=== PATIENT | female | born 1935 | race Caucasian/White ===

== ENCOUNTER 2016-05-08 13:04 | Inpatient (IN) | payer OTHER ==
--- NOTE | ~2016-05-08 | DS ---
Discharge Summary [place] [id number] [facility] [place]. [address] NAME: RIK SORTO : 37 STATUS : DIS IN PAT#: [id number] AGE: 81 ADM/REG DATE : 05/08/16 MR#: [id number] REPORT SERV DATE: 05/16/16 DICTATED BY: LEWIS DENT DATE: 05/15/16 REPORT STATUS : Draft TRANSCRIBED BY: MODL DATE: 05/15/16 ADMISSION DATE: 05/08/2016 DISCHARGE DATE: 05/15/2016 DISCHARGE DIAGNOSES: 1. Hypoxia, acute on chronic. 2. Aspiration pneumonia. 3. Painful/difficult swallowing. 4. Bilateral upper and lower extremity tremors, intermittent. 5. Pancytopenia secondary to Ibrance. 6. Metastatic breast cancer, progressive. CONSULTATIONS: Oncology, Dr. Ady Azevedo. IMAGIN. Chest x-ray, 05/08/2016. Impression: No significant change in appearance compared with 03/24/2016. Elevation of right diaphragm with right basilar atelectasis and pleural thickening. Linear region of atelectasis from lower left lobe improved. Bilateral apical pleural thickening and scarring with opacities at the right lung apex. Breast carcinoma with extensive bone metastasis. 2. CTA of chest, 05/08/2016. Impression: No CTA evidence of pulmonary embolism. No new segmental atelectasis, medial left upper lobe compared to 04/19/2016 CT of the chest. Otherwise, stable pattern. Patchy peripheral areas of fibrosis, most prominent anterior right lung apex. Diffuse thickening of the major fissure, most prominent anterior right lung apex. Diffuse thickening of the major fissure on the right, asymmetric ground-glass opacity, inferior right middle lobe and right lower lobe and several small intermittent pulmonary nodules, peripheral right lower lobe and superior segment of left lower lobe. 3. Chest x-ray, 05/10/2016. Impression: Diffuse bilateral reticular opacity, stable as compared to 05/08/2016 imaging. 4. Swallow study 05/11/2016. Impression: Single episode of aspiration occurring at the end of the study with a functional volume of thin barium by straw with a cough response. 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 Diet recommendations, mechanical soft, crush medications in pudding, and nectar thick liquids. 5. Echocardiogram, 05/11/2016. Right ventricular systolic function intact. Left ventricular systolic function intact at 57%. Left ventricular diastolic dysfunction with a left anterior enlargement. Only valvular dysfunction is mild tricuspid regurgitation. No significant changes noted when compared to 03/15/2015 study. HOSPITAL COURSE: Please refer to history and physical dictated by GREER Ugalde as well as interim note on 04/24/2016 for complete admission and interim notes. This patient is an 81-year-old female, who presented to [facility] Emergency Room with complaints of increased dyspnea on exertion with hypoxia. She also presented with fevers in the setting of neutropenia and thrombocytopenia. Discharge Summary [address] [address] NAME: RIK SORTO : 36 STATUS : DIS IN [facility]#: [id number] AGE: 81 ADM/REG DATE : 05/08/16 MR#: [id number] REPORT SERV DATE: 05/16/16 DICTATED BY: LEWIS DENT DATE: 05/15/16 REPORT STATUS : Draft TRANSCRIBED BY: LUIS EDUARDO DATE: 05/15/16 1. Hypoxia, acute on chronic. The patient was admitted with acute hypoxia likely due to aspiration. The patient has been on supplemental O2, was able to wean down to room air. She was initially started on Solu-Medrol IV and then tapered to a p.o. prednisone. She will be transitioned on a prednisone tapering dose at home. At this time she does deny any shortness of breath. 2. Neutropenic fever/aspiration pneumonia. The patient was noted with elevated temperatures at home. Upon admission, the patient has remained afebrile. She was began on antibiotics following blood cultures. At the time of admission, the patient was on cefepime. She is being discharged home on Levaquin for a 5-day therapy at home. 3. Painful/difficulty swallowing secondary to radiation. The patient did undergo radiation in March 2016. Stool study has been completed during this hospital stay. Diet modifications have been noted and discussed with the patient, she will continue this at home. At this time the patient will continue a soft diet with medical soft diet, crush medications in pudding, and nectar thick liquids. The patient did state understanding. 4. Bilateral upper and lower extremity tremors. Medication adjustments have been noted as stated previously in interim note. The patient will continue Remeron upon discharge, prescription has been provided. She also will continue physical therapy at home. 5. Pancytopenia secondary to branches Ibrance. No transfusions were indicated during this hospital stay. She will follow up with Dr. Ady Azevedo in two days for lab work and a followup appointment in seven days. 6. Thrombocytopenic chemo-induced. It was noted the patient's platelet count has been monitored through this stay and has trended upward and we will continue to monitor outpatient. 7. Metastatic breast cancer. Progression of disease despite treatment. The patient is followed by Dr. Ady Azevedo, [facility]. She will follow up with him in two days for lab work and in seven days for an appointment. At that time plan of care will be discussed. DISCHARGE MEDICATIONS: 1. Welchol 3.75 g powder packet p.o. daily. 2. Lipitor 40 mg one p.o. at bedtime. 3. Levothyroxine 75 mcg p.o. daily. 4. Remeron 50 mg one p.o. at bedtime. 5. MS Contin 50 mg one p.o. every 12 hours. 6. Protonix 40 mg one p.o. daily. 7. MiraLAX powder one pack p.o. daily p.r.n., hold for diarrhea. 8. Carafate 1 g p.o. before meals and at bedtime. 9. Prednisone taper dose. 10.Oxycodone 5 mg one p.o. four times daily p.r.n. for pain. 11.Tylenol 500 mg to 1000 mg p.o. twice daily p.r.n. for pain. 12.Xanax 0.5 mg one p.o. twice daily p.r.n. for anxiety. This discharge took greater than 30 minutes. Discharge Summary [address] [place]. [address] NAME: RIK SORTO : 36 STATUS : DIS IN PAT#: [id number] AGE: 81 ADM/REG DATE : 05/08/16 MR#: [id number] REPORT SERV DATE: 05/16/16 DICTATED BY: LEWIS DENT DATE: 05/15/16 REPORT STATUS : Draft TRANSCRIBED BY: MODL DATE: 05/15/16 [facility]/MODL Lewis Dent NP / [id number] CC: MD Nathen Godfrey MD
--- NOTE | ~2016-05-08 | HP ---
History And Physical [place] [id number] [facility] [place]. [address] NAME: RIK SORTO : 36 STATUS : ADM IN PAT#: [id number] AGE: 81 ADM/REG DATE : 05/08/16 MR#: [id number] REPORT SERV DATE: 05/08/16 DICTATED BY: DATE: REPORT STATUS : Draft TRANSCRIBED BY: MODL DATE: 05/08/16 DATE OF ADMISSION: 05/08/2016 CHIEF COMPLAINT: Dyspnea on exertion with hypoxia, subjective fevers in the setting of neutropenia, and thrombocytopenia. HISTORY OF PRESENTING ILLNESS: The patient's history was obtained through careful interview with the patient and her family coupled with review of [facility] records and [facility] office note dated 05/08/[address] Ady Azevedo. Briefly, the patient is an 81-year-old female, who is under the outpatient care of Dr. Ady Azevedo at [facility] for treatment of ER positive recurrent breast cancer. The patient presented to [facility]'s clinic today for Faslodex therapy. Upon evaluation, the patient complained of increased dyspnea and shortness of breath despite recent outpatient course of Augmentin to treat bronchitis. The patient also reported subjective fevers at home to include chills and sweats. The patient did not check temperature at home. During initial exam, the patient's oxygen saturation was reported to drop to 81% while walking with 93% recovery at rest on room air. The patient's platelet count was also reported to be down to 10,000. The patient was referred for direct admission to [facility] for further evaluation and treatment. The patient stated that she began feeling "poorly" late February or early March. The patient reports that she has had intermittent chills and sweats over the past few weeks that have increased in frequency. The patient also complained of a productive cough for the past three weeks now with yellow-colored sputum. The patient states she has been short of breath with exertion for the past five or six weeks, but the dyspnea with exertion has increased significantly since this morning. The patient also complained of increasing generalized weakness over the past several weeks that has significantly increased over the past several days. Per family report, the patient had a near fall while going up the stairs last and then suffered a fall to the floor this past Saturday. The patient denies any recent near syncopal or syncopal episodes. Family denied any loss of consciousness related to recent fall. The patient's family reports that multiple family members have suffered from upper respiratory illnesses to include positive flu test since March. REVIEW OF SYSTEMS: CONSTITUTIONAL: Positive for subjective report of fever, sweats, chills, and weight loss. EYES: Negative for blurred or double vision, wears glasses. HEENT: Positive for intermittent headache and sore throat related to recent radiation therapy. CARDIOVASCULAR: Negative for chest pain, palpitations, syncope. Positive for chronic orthopnea x40 plus years. RESPIRATORY: Positive for productive cough x3 weeks, dyspnea on exertion, and recent outpatient treatment for bronchitis. History And Physical [address] [address] NAME: RIK SORTO : 37 STATUS : ADM IN [facility]#: [id number] AGE: 81 ADM/REG DATE : 05/08/16 MR#: [id number] REPORT SERV DATE: 05/08/16 DICTATED BY: DATE: REPORT STATUS : Draft TRANSCRIBED BY: MODL DATE: 05/08/16 GASTROINTESTINAL: Negative for nausea, vomiting, abdominal pain. Positive for chronic constipation. MUSCULOSKELETAL: Positive for chronic bilateral lower extremity pain, arthritis. INTEGUMENT: Negative for rashes or suspicious skin lesions. NEUROLOGIC: Positive for generalized weakness. Denies history of stroke, TIA, and seizure. HEMATOLOGIC: Positive for pancytopenia. PSYCHIATRIC: Positive for anxiety. Negative for history of depression and bipolar. : Negative for dysuria, hematuria. Recent UTI. ENDOCRINE: Negative for diabetes mellitus. Positive for thyroid disease. PAST MEDICAL HISTORY: 1. Left breast cancer in 1992. 2. Right breast cancer in 1999 with recurrence in 2010 with metastases to bone, liver, and lung. 3. Hypothyroidism. 4. Anxiety. 5. Arthritis. PAST SURGICAL HISTORY: 1. Left mastectomy in 1992. 2. Right mastectomy in 1999. 3. Colonoscopy in 2005. HOME MEDICATIONS: 1. Tylenol 500 mg tablet take two tablets p.o. twice daily as needed. 2. Xanax 0.5 mg tablet p.o. twice daily as needed for anxiety. 3. Lipitor 40 mg tablet p.o. at bedtime. 4. Celexa 10 mg tablet p.o. daily. 5. WelChol 3.75 g powder p.o. daily. 6. Levothyroxine 75 mg mcg tablet p.o. daily. 7. MS Contin 15 mg SR tab p.o. every 12 hours. 8. Roxicodone 5 mg tablet p.o. four times daily as needed. 9. Pantoprazole 40 mg tablet p.o. daily. ALLERGIES: PENICILLIN, REACTION RASH. SOCIAL HISTORY: The patient is and lives with her son. 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 The patient is a remote tobacco user having quit in 1992. The patient denies the use of alcohol. The patient has not used a cane or walker in the past to assist with ambulation. FAMILY HISTORY: The patient's mother at age 90 with a history of breast cancer. The patient's father in a mining accident in his mid 40s. The patient has five siblings, all of whom, but one are . CODE STATUS: The patient expressed her wishes to be a limited DNR/DNI. History And Physical [address] [address] NAME: RIK SORTO : 37 STATUS : ADM IN [facility]#: [id number] AGE: 81 ADM/REG DATE : 05/08/16 MR#: [id number] REPORT SERV DATE: 05/08/16 DICTATED BY: DATE: REPORT STATUS : Draft TRANSCRIBED BY: MODL DATE: 05/08/16 LABORATORY DATA: Obtained from [facility] prior to this admission, white blood cell count 1.1, hemoglobin 8.8, hematocrit 24.8, platelet count 10,000. PHYSICAL EXAMINATION: VITAL SIGNS: Oxygen saturation 96% on room air at rest, blood pressure 104/51, temperature 98.4 degrees Fahrenheit, heart rate 101, weight 47.68 kg, height 4 feet 9 inches. NEURO: The patient is alert with no focal deficits. Cranial nerves 2 through 12 are intact. GENERAL: The patient is cooperative and in no apparent distress. She is awake, alert, and oriented x3. Appears fatigued. NECK: No lymphadenopathy. The patient is edentulous. No visible oral cavity lesions or exudate. CHEST: No tenderness to palpation. LUNGS: Shallow inspiratory effort. Normal work of breathing. Decreased lung sounds at bases. No wheezes. No rhonchi. CARDIOVASCULAR: Regular rate and rhythm with no murmurs, rubs, or gallops. Mild tachycardia. ABDOMEN: Soft, nontender. No distention. Bowel sounds are present in all four quadrants. EXTREMITIES: No edema to bilateral lower extremities. Bruise to left elbow. MUSCULOSKELETAL: Kyphosis. PSYCH: Demonstrates good decision making ability. ASSESSMENT AND PLAN: 1. Neutropenic fever. The patient reports subjective fevers at home. Temperature obtained upon admission is 98.4 degrees Fahrenheit. The patient is currently undergoing treatment for recurrent metastatic breast cancer to include Faslodex/Ibrance. 2. therapy. Diagnostic workup to rule out underlying infection in an immunosuppressed patient will include portable chest x-ray, blood cultures x2 sites, sputum culture, influenza swab, urinalysis with reflex culture and labs to include procalcitonin. Antibiotic therapy will be initiated and the patient will receive cefepime 2 g now after blood cultures are collected and then every eight hours thereafter with pharm to dose. 3. Dyspnea/hypoxia. Exact etiology is unclear. The patient subjectively reported history of shortness of breath for the last five to six weeks that has increased significantly with exertion today. If the patient was recently treated on an outpatient basis for bronchitis with Augmentin. Per [facility], the patient recently had a CT of the chest within the past several weeks, which was negative. Exact etiology is unclear, but differential diagnoses include upper respiratory infection versus pneumonia versus medication side effect versus pulmonary embolism versus radiation therapy side effect. Supplemental oxygen per nasal cannula will be provided to maintain oxygen saturation at 92% or greater. If indicated, repeat CT of the chest may be necessary to rule out pulmonary embolus. 4. Thrombocytopenia. Exact etiology is unclear, but differential diagnoses include negative side effects from medications versus infection versus recent pelvic radiation therapy. There is also concern of disseminated intravascular coagulation in the setting of malignancy. Coag studies will be obtained to include History And Physical [address] [address] NAME: RIK SORTO : 37 STATUS : ADM IN [facility]#: [id number] AGE: 81 ADM/REG DATE : 05/08/16 MR#: [id number] REPORT SERV DATE: 05/08/16 DICTATED BY: DATE: REPORT STATUS : Draft TRANSCRIBED BY: MODL DATE: 05/08/16 PT/PTT/INR/LDH/fibrinogen. Transfuse as needed to maintain platelet count within parameters set by [facility]. 5. Subjective fevers. The patient reports sweats and chills over the past couple of months at home that have increased significantly over the past couple of days. Diagnostic evaluation and labs are pending to rule out underlying infection. 6. Recent fall. The patient fell at home on Saturday. No loss of consciousness was reported. The patient states it is not related to a syncopal episode. Only injury sustained was bruise to left elbow. PT has been consulted to assess for fall prevention strategies. 7. Generalized weakness. This is progressively worsening. Exact etiology is unclear, but may be related to recent radiation therapy plus negative side effects of medication to treat metastatic breast cancer. 8. Bilateral lower extremity pain. The patient reports her pain bilaterally from shins to feet has been chronic for several months. We will continue home pain medications and hold home dose of Lipitor for now. 9. Decreased appetite. This is most significant since March after five days of radiation therapy. The patient will receive nutrition supplements to include Ensure three times daily. The patient also reports decreased weight reporting 15-pound weight loss since March. Nutrition consult has been requested. 10.Anxiety. Continue home dose of Celexa and Xanax. 11.Sore throat. This is related to recent radiation therapy. Per patient, this is improving. Continue [facility] mouthwash. 12.Metastatic breast cancer. The patient is currently undergoing treatment with Ibrance and Faslodex, last dose of Ibrance was 05/01/2016. Next scheduled dose is tentatively for 05/09/2016; however, per the patient's statement, this is to be held per [facility]. Last dose of Faslodex was today. The patient is status post radiation therapy x5 days 03/2016. PRIMARY ONCOLOGIST: Dr. Ady Azevedo. Care of this patient will be transferred to the service of Dr. Johnny Henderson. ETHAN/LUIS EDUARDO GREER Ugalde / [id number] CC: Leonel Blackman MD
--- NOTE | ~2016-05-08 | IDS ---
Interim Discharge Summary [address] [place]. [address] NAME: RIK SORTO : 37 STATUS : ADM IN [facility]#: [id number] AGE: 81 ADM/REG DATE : 05/08/16 MR#: [id number] REPORT SERV DATE: 05/15/16 DICTATED BY: DATE: REPORT STATUS : Draft TRANSCRIBED BY: MODL DATE: 05/14/16 ADMISSION DATE: 05/08/2016 DISCHARGE DATE: DISCHARGE DATE: 05/15/2016 Interim summary covers dates of service between 05/08/2016 and 05/14/2016. INTERIM DIAGNOSES: 1. Hypoxia, acute on chronic. 2. Aspiration pneumonia. 3. Painful/difficult swallowing. 4. Bilateral upper and lower extremity tremors, intermittent. 5. Pancytopenia. 6. Thrombocytopenia. 7. Metastatic breast cancer, progressive. CONSULTATIONS: Dr. Ady Azevedo, [facility]. PERTINENT TESTS AND PROCEDURES: 1. Chest x-ray, 05/08/2016. Impression: No significant interval change in appearance of chest x-ray when compared to 03/24/2016. Elevation of the right diaphragm with right basilar atelectasis and pleural thickening. Linear region of atelectasis from lower left lobe, improved. Bilateral apical pleural thickening and scarring with opacities at right lung apex. Breast carcinoma with extensive bone metastases. 2. CTA of chest, 05/08/2016. Impression:. a. No CTA evidence of pulmonary embolus. b. New focal subsegmental atelectasis, medial left upper lobe, compared to 04/19/2016 CT of the chest. c. Otherwise stable pattern of patchy peripheral areas of fibrosis, most prominent anterior right lung apex. Diffuse thickening of the major fissure on the right, asymmetric ground-glass opacity, inferior right middle lobe and right lower lobe and several small indeterminant pulmonary nodules, peripheral right lower lobe and superior segment, left lower lobe. d. Stable pattern of more diffuse ground-glass opacities, inferior right middle lobe and right lower lobe, suggesting asymmetric pulmonary fibrosis, progressing asymmetric interstitial edema, and asymmetric interstitial pneumonitis. e. Enlarged right retrocrural lymph node, stable. f. Stable hypodense 1.8 x 1.2 cm lesion, anterior margin of liver dome, left lobe liver, suspicious for liver metastatic disease. g. Stable pattern of extensive osteoblastic metastatic disease involving lower cervical spine, scattered throughout the thoracic spine and multiple bilateral ribs, right scapula, and lower sternum. 3. Chest x-ray, 05/10/2016. Impression: Diffuse bilateral reticular opacity, stable as compared to 05/08/2016 imaging. 4. Swallow study, 05/11/2016. Impression: Single episode of aspiration occurring at the Interim Discharge Summary [address] [place]. [address] NAME: RIK SORTO : 37 STATUS : ADM IN [facility]#: [id number] AGE: 81 ADM/REG DATE : 05/08/16 MR#: [id number] REPORT SERV DATE: 05/15/16 DICTATED BY: DATE: REPORT STATUS : Draft TRANSCRIBED BY: MODL DATE: 05/14/16 end of the study with a functional volume of thin barium by straw with a cough response. 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 Diet recommendation, mechanical soft, crush meds in pudding, and nectar thick liquids. 5. Echocardiogram, 05/11/2016. Summary: Right ventricular systolic function, intact. Left ventricular systolic function, intact at 57%. Left ventricular diastolic dysfunction with left atrial enlargement. Only valvular dysfunction is mild tricuspid regurgitation. No significant changes noted when compared to 03/15/2015 study. HOSPITAL COURSE: Chief complaint upon admission: Dyspnea on exertion with hypoxia, subjective fevers in the setting of neutropenia, and thrombocytopenia. Please refer to history and physical dated 05/08/2016 provided by fl for complete details of the patient's initial presentation upon admission and health history. 1. Hypoxia, acute on chronic. Review of medical records from [facility] reported the patient has a history of chronic class 2 exertional dyspnea. Acute hypoxia likely related to aspiration. The patient's trial of ambulation indicated need for supplemental home O2. The patient was placed on Solu-Medrol IV and then transitioned to p.o. prednisone. The patient has responded well to steroid therapy. Steroid taper should begin at discharge and continue for 6 days. 2. Neutropenic fever/aspiration pneumonia. The patient reported subjective elevated temperatures while at home. During this admission, the patient has remained afebrile. Upon admission, the patient was neutropenic and white blood cell count was reported to be 0.8. The patient was placed on cefepime and will continue through discharge. Per Oncology recommendation, the patient should be transitioned to oral antibiotic to continue additional 5-day therapy at home. Aspiration is likely due to painful and difficult swallowing related to neck radiation therapy completed mid March of 2016. 3. Painful and difficult swallowing. This is related to radiation therapy received to treat bony mets in neck, 03/2016. The patient underwent barium swallow which indicated aspiration. Recommended diet modifications have been initiated to include mechanical soft diet. Crush medications in pudding and nectar thick liquids. 4. Bilateral upper and lower extremity tremors, this is multifactorial, to include generalized weakness and possible side effects from citalopram. The patient was placed on citalopram approximately three months ago and the patient's family stated tremors began several weeks after that. Citalopram was discontinued during this admission, and the patient was started on mirtazapine. The patient has tolerated this medication without any adverse side effects to date. Continue mirtazapine upon discharge. 5. Pancytopenia. This is secondary to Ibrance. No transfusions have been indicated today. The patient will have home healthcare come either this or Saturday to draw CBC and BMP and results will be faxed to Dr. Ady Azevedo's office for review. 6. Thrombocytopenia. The patient's platelets have remained low throughout this admission. Upon admission, the patient's platelet level was reported to be 9000. It has slowly trended up daily and is 24,000 today. This is most likely multifactorial, to include treatment with Ibrance and likely marrow involvement. 7. Metastatic breast cancer, progressive despite treatment. The patient is declining future treatment due to poor performance status. The patient will follow up with Dr. Ady Azevedo, 05/22/2016 and discuss future plan of care to include possible transition Interim Discharge Summary [address] [place]. [address] NAME: RIK SORTO MIKE : 37 STATUS : ADM IN [facility]#: [id number] AGE: 81 ADM/REG DATE : 05/08/16 MR#: [id number] REPORT SERV DATE: 05/15/16 DICTATED BY: DATE: REPORT STATUS : Draft TRANSCRIBED BY: MODL DATE: 05/14/16 to hospice. CURRENT PLAN AND DISPOSITION: 1. The patient will likely discharge home, 05/15/2016, if lab counts are stable and the patient remains afebrile. 2. Social Work has been consulted for home oxygen, to include portable concentrator. Home healthcare, physical therapy, and lab draw in addition to wheelchair. 3. It is noteworthy to mention the patient was suffering from orthostatic hypotension during this admission which may have been related to dehydration. Cortisol a.m. Lab value was within normal limits. This has since resolved. DISCHARGE INSTRUCTIONS: The patient is to follow up with Dr. Ady Azevedo on 05/22/2016 at 02:15. HIRO/LUIS EDUARDO GREER Ugalde / [id number]
[~2016-05-08 13:04] MED LIST: CAL; CALCIUM; FLEXERIL5 MG PO; LEVOTHROID75 MCG PO; LIPITOR20 PO; OXYCOD PO; PEP20 PO; VIT D; VIT D 3
[2016-05-08] MEDS ORDERED: OXYCOD PO (15:01)
[2016-05-08] MEDS ORDERED: CELEXA10 PO (15:01)
[2016-05-08] MEDS ORDERED: MSCONT15 PO (15:01)
[2016-05-08] MEDS ORDERED: X5 PO (15:02)
[2016-05-08] MEDS ORDERED: ACET500CAP PO (15:02)
[2016-05-08] MEDS ORDERED: WELCHOL3.75 GM PO (15:02)
[2016-05-08] MEDS ORDERED: LEVOTHYROXIN75 MCG PO (15:02)
[2016-05-08] MEDS ORDERED: PROTONIX PO (15:03)
[2016-05-08] MEDS ORDERED: LIPITOR40 PO (15:03)
[2016-05-08 15:54] LABS: INFLUENZA A SCREEN NEGATIVE (NEGATIVE); INFLUENZA B SCREEN NEGATIVE (NEGATIVE)
[2016-05-08 16:12] LABS: MEAN CORPUS HGB CONC 33.8 g/dL (32.0-36.0); MEAN CORPUSCULAR HEMOGLOB 33.2 pg (26.0-34.0); RBC DISTRIBUTION WIDTH 16.4 % (12.0-16.0)
[2016-05-08 16:14] LABS: HEMATOCRIT 23.4 % (36.0-48.0); HEMOGLOBIN 7.9 g/dL (12.0-16.0); MEAN CORPUSCULAR VOLUME 98.3 fL (80-100); PLATELET COUNT 9 10/3/uL (150-400); RED CELL COUNT 2.38 10/6/uL (4.0-5.6); WHITE BLOOD CELLS 0.8 10/3/uL (4.5-10.5)
[2016-05-08 16:16] LABS: MANUAL DIFF YES %
[2016-05-08 16:19] LABS: FIBRINOGEN 430 MG/DL (230-462); INTERNATIONAL NORMAL RATI 1.2 UNITS (-); PROTIME (NOT ORD) 14.9 SEC (12.0-14.5)
[2016-05-08 16:41] LABS: BAND NEUTROPHILS 4 %; LYMPHOCYTES 58 %; LYMPHOCYTES ABSOLUTE (CALC) 0.46 10/3/uL (0.67-4.30); MONOCYTES 4 %; MONOCYTES ABSOLUTE (CALC) 0.03 10/3/uL (0.21-1.20); SEGMENTED NEUTROPHIL (0) 34 %; TOTAL NUCLEATED CELLS 50
[2016-05-08 16:42] LABS: ANISOCYTOSIS 1+ (5-10/OIF) (0-5/OIF); OVALOCYTES 1+ (3-10/OIF) (0-2/OIF)
[2016-05-08 17:03] LABS: ASCORBIC ACID (UR NOT ORDER) NEG (NEG); BILIRUBIN, URINE NEGATIVE (NEG); KETONE, URINE TRACE MG/DL (NEG); LEUKOCYTE ESTERASE(NOT OR TRACE (NEG); WBC (NOT ORDERED) (RFLEX) 3 (0-5)
[2016-05-08 17:50] LABS: PROCALCITONIN 0.06 ng/mL (<0.5)
[2016-05-08 19:29] LABS: A/G RATIO 0.7 (0.7-1.9); ALBUMIN 2.7 G/DL (3.5-5.0); ALKALINE PHOSPHATASE 97 U/L (45-117); CALCIUM, SERUM 8.1 MG/DL (8.5-10.4); CHLORIDE, SERUM 103 MMOL/L (96-112); CO2 (CARBON DIOXIDE) 26 MMOL/L (24-34); GFR AFRICAN AMERICAN 81 ML/MIN (>=60); GFR NON AFRICAN AMERICAN 70 ML/MIN (>=60); GLUCOSE, SERUM 95 MG/DL (60-99); SGOT(AST) 32 U/L (5-40); SGPT(ALT) 18 U/L (5-65); SODIUM, SERUM 141 MMOL/L (135-148); TOTAL PROTEIN 6.7 G/DL (6.0-8.5)
[2016-05-08 19:30] LABS: BUN (BLOOD UREA NITROGEN) 11 MG/DL (6-23); POTASSIUM, SERUM 2.9 MMOL/L (3.5-5.3); TOTAL BILIRUBIN 1.5 MG/DL (0-1.2)
[2016-05-09 04:58] LABS: HEMATOCRIT 22.3 % (36.0-48.0); HEMOGLOBIN 7.5 g/dL (12.0-16.0); MEAN CORPUS HGB CONC 33.6 g/dL (32.0-36.0); MEAN CORPUSCULAR HEMOGLOB 32.9 pg (26.0-34.0); MEAN CORPUSCULAR VOLUME 97.8 fL (80-100); RBC DISTRIBUTION WIDTH 16.9 % (12.0-16.0); RED CELL COUNT 2.28 10/6/uL (4.0-5.6)
[2016-05-09 05:02] LABS: MANUAL DIFF YES %; PLATELET COUNT 15 10/3/uL (150-400); WHITE BLOOD CELLS 0.8 10/3/uL (4.5-10.5)
[2016-05-09 05:13] LABS: BUN (BLOOD UREA NITROGEN) 10 MG/DL (6-23); CALCIUM, SERUM 8.1 MG/DL (8.5-10.4); CHLORIDE, SERUM 109 MMOL/L (96-112); CO2 (CARBON DIOXIDE) 28 MMOL/L (24-34); CREATININE 0.59 MG/DL (0.55-1.02); GFR AFRICAN AMERICAN 100 ML/MIN (>=60); GFR NON AFRICAN AMERICAN 87 ML/MIN (>=60); GLUCOSE, SERUM 97 MG/DL (60-99); SODIUM, SERUM 145 MMOL/L (135-148)
[2016-05-09 05:28] LABS: BAND NEUTROPHILS 2 %; ELLIPTOCYTES 1+ (3-10/OIF) (0-2/OIF); IMMATURE GRANS ABSOLUTE (CALC) 0.02 10/3/uL (0.0-0.11); LYMPHOCYTES 64 %; LYMPHOCYTES ABSOLUTE (CALC) 0.51 10/3/uL (0.67-4.30); METAMYELOCYTES 2 %; MONOCYTES 2 %; MONOCYTES ABSOLUTE (CALC) 0.02 10/3/uL (0.21-1.20); NEUTROPHILS ABSOLUTE (CALC) 0.26 10/3/uL (2.02-8.40); OVALOCYTES 1+ (3-10/OIF) (0-2/OIF); SEGMENTED NEUTROPHIL (0) 30 %; TOTAL NUCLEATED CELLS 100
[2016-05-09 05:29] LABS: POIKILOCYTOSIS 1+ (5-10/OIF) (0-5/OIF)
[2016-05-10 07:35] LABS: A/G RATIO 0.6 (0.7-1.9); ALBUMIN 2.2 G/DL (3.5-5.0); ALKALINE PHOSPHATASE 89 U/L (45-117); BUN (BLOOD UREA NITROGEN) 10 MG/DL (6-23); CHLORIDE, SERUM 105 MMOL/L (96-112); CO2 (CARBON DIOXIDE) 27 MMOL/L (24-34); CREATININE 0.64 MG/DL (0.55-1.02); GFR AFRICAN AMERICAN 98 ML/MIN (>=60); GFR NON AFRICAN AMERICAN 84 ML/MIN (>=60); GLOBULIN 3.7 G/DL (2.5-4.1); GLUCOSE, SERUM 100 MG/DL (60-99); POTASSIUM, SERUM 4.2 MMOL/L (3.5-5.3); SGOT(AST) 27 U/L (5-40); SGPT(ALT) 11 U/L (5-65); SODIUM, SERUM 141 MMOL/L (135-148); TOTAL PROTEIN 5.9 G/DL (6.0-8.5)
[2016-05-10 07:36] LABS: MEAN CORPUSCULAR HEMOGLOB 32.5 pg (26.0-34.0); MEAN CORPUSCULAR VOLUME 98.6 fL (80-100); NUCLEATED RED BLOOD CELLS 7.5 /100WBC (0-0); RBC DISTRIBUTION WIDTH 16.9 % (12.0-16.0); RED CELL COUNT 2.09 10/6/uL (4.0-5.6); TOTAL BILIRUBIN 0.9 MG/DL (0-1.2)
[2016-05-10 07:37] LABS: HEMATOCRIT 20.6 % (36.0-48.0); HEMOGLOBIN 6.8 g/dL (12.0-16.0); MANUAL DIFF YES %; PLATELET COUNT 12 10/3/uL (150-400); WHITE BLOOD CELLS 0.7 10/3/uL (4.5-10.5)
[2016-05-10 08:12] LABS: ANISOCYTOSIS 1+ (5-10/OIF) (0-5/OIF); BAND NEUTROPHILS 3 %; EOSINOPHILS 3 %; EOSINOPHILS ABSOLUTE (CALC) 0.02 10/3/uL (0.0-0.53); IMMATURE GRANS ABSOLUTE (CALC) 0.04 10/3/uL (0.0-0.11); LYMPHOCYTES 46 %; LYMPHOCYTES ABSOLUTE (CALC) 0.32 10/3/uL (0.67-4.30); METAMYELOCYTES 6 %; MONOCYTES 9 %; MONOCYTES ABSOLUTE (CALC) 0.06 10/3/uL (0.21-1.20); NEUTROPHILS ABSOLUTE (CALC) 0.26 10/3/uL (2.02-8.40); SEGMENTED NEUTROPHIL (0) 34 %; TOTAL NUCLEATED CELLS 35
[2016-05-10 08:13] LABS: SCHISTOCYTES OCC (0-2/OIF)
[2016-05-10 08:14] LABS: TEARDROP SHAPED RBCS OCC (0-2/OIF)
[2016-05-11 08:43] LABS: BUN (BLOOD UREA NITROGEN) 12 MG/DL (6-23); CHLORIDE, SERUM 106 MMOL/L (96-112); CO2 (CARBON DIOXIDE) 30 MMOL/L (24-34); CREATININE 0.55 MG/DL (0.55-1.02); GFR AFRICAN AMERICAN 103 ML/MIN (>=60); GFR NON AFRICAN AMERICAN 89 ML/MIN (>=60); GLUCOSE, SERUM 95 MG/DL (60-99); POTASSIUM, SERUM 4.4 MMOL/L (3.5-5.3); SODIUM, SERUM 142 MMOL/L (135-148)
[2016-05-11 09:03] LABS: MEAN CORPUSCULAR HEMOGLOB 31.9 pg (26.0-34.0); NUCLEATED RED BLOOD CELLS 7.3 /100WBC (0-0)
[2016-05-11 09:07] LABS: HEMATOCRIT 25.3 % (36.0-48.0); HEMOGLOBIN 8.6 g/dL (12.0-16.0); MEAN CORPUSCULAR VOLUME 93.7 fL (80-100); PLATELET COUNT 12 10/3/uL (150-400); RBC DISTRIBUTION WIDTH 20.9 % (12.0-16.0); WHITE BLOOD CELLS 0.7 10/3/uL (4.5-10.5)
[2016-05-11 09:08] LABS: MANUAL DIFF YES %
[2016-05-11 09:45] LABS: ANISOCYTOSIS 1+ (5-10/OIF) (0-5/OIF); BAND NEUTROPHILS 6 %; EOSINOPHILS 2 %; EOSINOPHILS ABSOLUTE (CALC) 0.01 10/3/uL (0.0-0.53); LYMPHOCYTES 66 %; LYMPHOCYTES ABSOLUTE (CALC) 0.46 10/3/uL (0.67-4.30); MONOCYTES 10 %; MONOCYTES ABSOLUTE (CALC) 0.07 10/3/uL (0.21-1.20); NEUTROPHILS ABSOLUTE (CALC) 0.15 10/3/uL (2.02-8.40); SEGMENTED NEUTROPHIL (0) 16 %; TOTAL NUCLEATED CELLS 50
[2016-05-11 09:46] LABS: ELLIPTOCYTES 1+ (3-10/OIF) (0-2/OIF)
[2016-05-12 05:32] LABS: BUN (BLOOD UREA NITROGEN) 11 MG/DL (6-23); CALCIUM, SERUM 8.3 MG/DL (8.5-10.4); CHLORIDE, SERUM 105 MMOL/L (96-112); CO2 (CARBON DIOXIDE) 28 MMOL/L (24-34); CREATININE 0.47 MG/DL (0.55-1.02); GFR AFRICAN AMERICAN 108 ML/MIN (>=60); GFR NON AFRICAN AMERICAN 93 ML/MIN (>=60); GLUCOSE, SERUM 104 MG/DL (60-99); SODIUM, SERUM 139 MMOL/L (135-148)
[2016-05-12 05:35] LABS: POTASSIUM, SERUM 4.3 MMOL/L (3.5-5.3)
[2016-05-12 07:02] LABS: HEMATOCRIT 24.7 % (36.0-48.0); HEMOGLOBIN 8.5 g/dL (12.0-16.0); MEAN CORPUS HGB CONC 34.4 g/dL (32.0-36.0); MEAN CORPUSCULAR HEMOGLOB 31.3 pg (26.0-34.0); RED CELL COUNT 2.72 10/6/uL (4.0-5.6)
[2016-05-12 07:06] LABS: MANUAL DIFF YES %; MEAN CORPUSCULAR VOLUME 90.8 fL (80-100); PLATELET COUNT 10 10/3/uL (150-400); WHITE BLOOD CELLS 0.7 10/3/uL (4.5-10.5)
[2016-05-12 07:32] LABS: ANISOCYTOSIS 1+ (5-10/OIF) (0-5/OIF); BAND NEUTROPHILS 2 %; EOSINOPHILS 2 %; EOSINOPHILS ABSOLUTE (CALC) 0.01 10/3/uL (0.0-0.53); LYMPHOCYTES 62 %; LYMPHOCYTES ABSOLUTE (CALC) 0.43 10/3/uL (0.67-4.30); MONOCYTES 9 %; MONOCYTES ABSOLUTE (CALC) 0.06 10/3/uL (0.21-1.20); NEUTROPHILS ABSOLUTE (CALC) 0.19 10/3/uL (2.02-8.40); SEGMENTED NEUTROPHIL (0) 25 %; TOTAL NUCLEATED CELLS 55
[2016-05-12 07:33] LABS: OVALOCYTES 1+ (3-10/OIF) (0-2/OIF); SCHISTOCYTES OCC (0-2/OIF)
[2016-05-13 06:49] LABS: HEMOGLOBIN 9.2 g/dL (12.0-16.0); MEAN CORPUSCULAR HEMOGLOB 30.9 pg (26.0-34.0); NUCLEATED RED BLOOD CELLS 2.1 /100WBC (0-0); RBC DISTRIBUTION WIDTH 19.6 % (12.0-16.0); RED CELL COUNT 2.98 10/6/uL (4.0-5.6)
[2016-05-13 06:51] LABS: HEMATOCRIT 27.9 % (36.0-48.0); MANUAL DIFF YES %; MEAN CORPUSCULAR VOLUME 93.6 fL (80-100); PLATELET COUNT 15 10/3/uL (150-400); WHITE BLOOD CELLS 0.7 10/3/uL (4.5-10.5)
[2016-05-13 07:16] LABS: BAND NEUTROPHILS 14 %; LYMPHOCYTES 40 %; LYMPHOCYTES ABSOLUTE (CALC) 0.28 10/3/uL (0.67-4.30); MONOCYTES 4 %; MONOCYTES ABSOLUTE (CALC) 0.03 10/3/uL (0.21-1.20); NEUTROPHILS ABSOLUTE (CALC) 0.39 10/3/uL (2.02-8.40); SEGMENTED NEUTROPHIL (0) 42 %; TOTAL NUCLEATED CELLS 50
[2016-05-13 07:17] LABS: ANISOCYTOSIS 1+ (5-10/OIF) (0-5/OIF); ELLIPTOCYTES 1+ (3-10/OIF) (0-2/OIF)
[2016-05-13 07:22] LABS: BUN (BLOOD UREA NITROGEN) 12 MG/DL (6-23); CALCIUM, SERUM 9.1 MG/DL (8.5-10.4); CHLORIDE, SERUM 108 MMOL/L (96-112); CO2 (CARBON DIOXIDE) 25 MMOL/L (24-34); CREATININE 0.57 MG/DL (0.55-1.02); GFR AFRICAN AMERICAN 101 ML/MIN (>=60); GFR NON AFRICAN AMERICAN 88 ML/MIN (>=60); SODIUM, SERUM 144 MMOL/L (135-148)
[2016-05-13 07:26] LABS: GLUCOSE, SERUM 180 MG/DL (60-99); POTASSIUM, SERUM 4.5 MMOL/L (3.5-5.3)
[2016-05-14 09:06] LABS: HEMOGLOBIN 10.3 g/dL (12.0-16.0); MEAN CORPUS HGB CONC 33.4 g/dL (32.0-36.0); MEAN CORPUSCULAR HEMOGLOB 32.2 pg (26.0-34.0); MEAN CORPUSCULAR VOLUME 96.3 fL (80-100); NUCLEATED RED BLOOD CELLS 3.7 /100WBC (0-0); RBC DISTRIBUTION WIDTH 19.9 % (12.0-16.0)
[2016-05-14 09:07] LABS: HEMATOCRIT 30.8 % (36.0-48.0); PLATELET COUNT 24 10/3/uL (150-400); WHITE BLOOD CELLS 1.8 10/3/uL (4.5-10.5)
[2016-05-14 09:08] LABS: MANUAL DIFF YES %
[2016-05-14 09:29] LABS: CALCIUM, SERUM 8.5 MG/DL (8.5-10.4); CHLORIDE, SERUM 109 MMOL/L (96-112); CO2 (CARBON DIOXIDE) 28 MMOL/L (24-34); CREATININE 0.66 MG/DL (0.55-1.02); GFR AFRICAN AMERICAN 97 ML/MIN (>=60); GFR NON AFRICAN AMERICAN 83 ML/MIN (>=60); SODIUM, SERUM 145 MMOL/L (135-148)
[2016-05-14 09:32] LABS: BUN (BLOOD UREA NITROGEN) 16 MG/DL (6-23); GLUCOSE, SERUM 87 MG/DL (60-99); POTASSIUM, SERUM 3.4 MMOL/L (3.5-5.3)
[2016-05-14 10:05] LABS: BAND NEUTROPHILS 19 %; LYMPHOCYTES 28 %; LYMPHOCYTES ABSOLUTE (CALC) 0.51 10/3/uL (0.67-4.30); MONOCYTES 13 %; MONOCYTES ABSOLUTE (CALC) 0.24 10/3/uL (0.21-1.20); NEUTROPHILS ABSOLUTE (CALC) 1.05 10/3/uL (2.02-8.40); SEGMENTED NEUTROPHIL (0) 39 %; TOTAL NUCLEATED CELLS 67
[2016-05-14 10:06] LABS: ANISOCYTOSIS 1+ (5-10/OIF) (0-5/OIF)
[2016-05-15 04:27] LABS: HEMATOCRIT 25.8 % (36.0-48.0); HEMOGLOBIN 8.5 g/dL (12.0-16.0); MANUAL DIFF YES %; MEAN CORPUS HGB CONC 32.9 g/dL (32.0-36.0); MEAN CORPUSCULAR HEMOGLOB 31.1 pg (26.0-34.0); MEAN CORPUSCULAR VOLUME 94.5 fL (80-100); NUCLEATED RED BLOOD CELLS 3.5 /100WBC (0-0); PLATELET COUNT 20 10/3/uL (150-400); RED CELL COUNT 2.73 10/6/uL (4.0-5.6); WHITE BLOOD CELLS 1.7 10/3/uL (4.5-10.5)
[2016-05-15 04:44] LABS: BUN (BLOOD UREA NITROGEN) 16 MG/DL (6-23); CALCIUM, SERUM 7.7 MG/DL (8.5-10.4); CHLORIDE, SERUM 113 MMOL/L (96-112); CO2 (CARBON DIOXIDE) 25 MMOL/L (24-34); CREATININE 0.49 MG/DL (0.55-1.02); GFR AFRICAN AMERICAN 107 ML/MIN (>=60); GFR NON AFRICAN AMERICAN 92 ML/MIN (>=60); GLUCOSE, SERUM 101 MG/DL (60-99); POTASSIUM, SERUM 4.1 MMOL/L (3.5-5.3); SODIUM, SERUM 148 MMOL/L (135-148)
[2016-05-15 04:52] LABS: ANISOCYTOSIS 1+ (5-10/OIF) (0-5/OIF); BAND NEUTROPHILS 4 %; LYMPHOCYTES 32 %; LYMPHOCYTES ABSOLUTE (CALC) 0.54 10/3/uL (0.67-4.30); MONOCYTES 14 %; MONOCYTES ABSOLUTE (CALC) 0.24 10/3/uL (0.21-1.20); NEUTROPHILS ABSOLUTE (CALC) 0.92 10/3/uL (2.02-8.40); POLYCHROMASIA 1+ (2-5/OIF) (0-1/OIF); SEGMENTED NEUTROPHIL (0) 50 %; TOTAL NUCLEATED CELLS 100
[2016-05-15] MEDS ORDERED: REM15 PO (14:49)
[2016-05-15] MEDS ORDERED: MIRALAX POWDER1 PKT PO (14:51)
[2016-05-15] MEDS ORDERED: CARASPUDL PO (14:54)
[2016-05-15] MEDS ORDERED: P10 (14:58)
[2016-05-15] MEDS ORDERED: LEVAQUIN750 MG PO (14:59)
== END 2016-05-15 18:32 | disposition home health service (06) | DRG 177 ==
LOC: 4EA 13:04
PROVIDERS: Hospitalist; Nurse Practitioner Family
DX: J69.0 Pneumonitis due to inhalation of food and vomit (principal); D61.810 Antineoplastic chemotherapy induced pancytopenia; E44.0 Moderate protein-calorie malnutrition; C79.51 Secondary malignant neoplasm of bone; C50.919 Malignant neoplasm of unspecified site of unspecified female breast; R50.81 Fever presenting with conditions classified elsewhere; D70.9 Neutropenia, unspecified; Z66 Do not resuscitate; E03.9 Hypothyroidism, unspecified; Z68.21 Body mass index [BMI] 21.0-21.9, adult
CPT/HCPCS: 36415; 71010; 71275; 74230; 80048; 80053; 81001; 82533; 83615; 83880; 84145; 85025; 85384; 85610; 85730; 86850; 86900; 86901; 86920; 87040; 87070; 87205; 87804; 92610-GN; 92611-GN; 94640; 97161-GP; 97164-GP; A9270-GY; C8929; G0463; J0692; J2920; P9016; Q9957; Q9967

== ENCOUNTER 2016-06-05 16:11 | Inpatient (IN) | payer OTHER ==
--- NOTE | ~2016-06-05 | DS ---
Discharge Summary [address] [place]. [address] NAME: RIK SORTO : 37 STATUS : DIS IN PAT#: [id number] AGE: 81 ADM/REG DATE : 06/05/16 MR#: [id number] REPORT SERV DATE: 06/12/16 DICTATED BY: DATE: REPORT STATUS : Draft TRANSCRIBED BY: MODL DATE: 06/11/16 ADMISSION DATE: 06/05/2016 DISCHARGE DATE: 06/11/2016 DISCHARGE DIAGNOSES: 1. Pneumonia/healthcare-associated pneumonia, likely aspiration. 2. Leukocytosis. 3. Abnormal urinalysis. 4. Abnormal chest x-ray/volume overload. 5. Hypernatremia, resolved. 6. Thrombocytopenia. 7. Presumed adrenal insufficiency. 8. Chronic hypoxic respiratory failure. CONSULTATIONS: 1. Dr. Ady Azevedo, [facility]. PERTINENT TESTS AND PROCEDURES: 1. Chest x-ray, 06/05/2016, impression: Increasing left perihilar infiltrate with persistent diffuse bilateral pulmonary infiltrates. Improved aeration at left lung base. Probable small right pleural effusion appearing unchanged. 2. Chest x-ray, 06/08/2016, impression: Acute onset and moderately severe failure. Right pleural effusion. Stable mild cardiomegaly. 3. Urinalysis, 06/05/2016, result: Moderate leukocyte esterase, negative nitrite, 3 red blood cells, 27 white blood cells, bacteria rare. Urine culture, final result, approximately 30,000 colonies of E. coli. CHIEF COMPLAINT UPON ADMISSION: Profound increase in weakness and fatigue x3 days, chills, sweats, subjective fever, decreased appetite, increased dyspnea on exertion. HOSPITAL COURSE: Please refer to history and physical dated 06/05/2016 provided by ar for complete details of the patient's initial presentation upon admission and health history. Briefly, the patient is an 81-year-old female, who is under the outpatient care of Dr. Ady Azevedo at [facility] for management of metastatic breast cancer with metastases to bone, liver, and lungs. The patient had recently been undergoing treatment with Faslodex/Ibrance before disease progression last month. Due to poor performance status, it has been determined that the patient is no longer a candidate for further treatment. Noteworthy to mention that the patient was hospitalized recently between 05/08/2016 and 05/16/2016 with similar complaints. 1. Pneumonia/HCAP/likely aspiration. The patient has a history of likely aspiration pneumonia related to difficulty swallowing, status post radiation therapy to the cervical spine in March. The patient also has history of pulmonary fibrosis and Discharge Summary [address] [place]. [address] NAME: RIK SORTO : 37 STATUS : DIS IN PAT#: [id number] AGE: 81 ADM/REG DATE : 06/05/16 MR#: [id number] REPORT SERV DATE: 06/12/16 DICTATED BY: DATE: REPORT STATUS : Draft TRANSCRIBED BY: MODL DATE: 06/11/16 metastatic disease to the lung. The patient received seven days of antibiotic therapy to include cefepime and vancomycin. The patient responded well to therapy. Initially, she was placed on Levaquin p.o. and original intent was to continue outpatient for five days. However, the patient is at high risk for C. diff and toxicity related to fluoroquinolones, so antibiotic therapy has been discontinued. 2. Leukocytosis. This is likely multifactorial to include steroid use and most likely subclinical persistent pneumonia related aspiration. The patient is afebrile and procalcitonin has returned to normal range. White blood cell count has ranged between 11.5 and 14.3. The patient remains afebrile. 3. Abnormal UA. Culture resulted reporting approximately 30,000 colonies of E. coli. This was likely colonization, however, the patient did complete seven days of antibiotic therapy to include cefepime to treat pneumonia. The patient has remained asymptomatic, denying dysuria, increased urgency, and hematuria. 4. Abnormal chest x-ray. The patient was shown to have moderate to severe failure related to volume overload. The patient has a history of same. Responded well to diuretic. The symptoms to include chest pressure has since resolved. No additional intervention is indicated. 5. Hypernatremia. This was likely related to dehydration. Sodium has returned to normal and it is 144 today. 6. Thrombocytopenia. This is most likely multifactorial to include possible bone marrow involvement. Lovenox was discontinued approximately two days ago and SUZANNE hose were initiated. The patient's platelet counts were reported to be 141 upon admission and they have trended down to 93 today. There are no clinical signs or symptoms of bleeding. 7. Presumed adrenal insufficiency. The patient has had long-term use of steroids in the past secondary to metastatic breast cancer with metastases to the bone, liver, and lung. The patient underwent most recent taper to stop prior to this admission, and within two days, the patient was lethargic with family reporting the patient sleeping in excess of 36 hours. It is most likely the patient is suffering from adrenal insufficiency. Oncology recommended the patient was staying on lifetime dose of dexamethasone 40 mg p.o. daily. 8. Chronic hypoxic respiratory failure. The patient has a history of chronic class 2 exertional dyspnea, per review of [facility] records. The patient also has additional underlying issues to include history of pulmonary fibrosis, recurrent aspiration, and metastatic disease to the lungs. Continue supplemental O2 at home. 9. Metastatic breast cancer. With metastases to bone, liver, and lung. The patient's disease progressed despite treatment with Faslodex and Ibrance. The patient's performance status has declined significantly, and she is no longer considered a candidate for any future treatment. Oncology met with the patient and family in addition to [facility] per family's request. All agreed that it is in the patient's best interest to transition home under the care of [facility] secondary to poor performance status and progressive disease. DISCHARGE CONDITION: At the time of discharge, the patient is hemodynamically stable. DISCHARGE DIET: Regular diet as tolerated. Discharge Summary [address] [place]. [address] NAME: RIK SORTO : 37 STATUS : DIS IN PAT#: [id number] AGE: 81 ADM/REG DATE : 06/05/16 MR#: [id number] REPORT SERV DATE: 06/12/16 DICTATED BY: DATE: REPORT STATUS : Draft TRANSCRIBED BY: LUIS EDUARDO DATE: 06/11/16 DISCHARGE MEDICATIONS: The patient will receive dexamethasone 4 mg tablet p.o. daily for presumed adrenal insufficiency. Otherwise, all other home medications will be managed per [facility]. DISCHARGE INSTRUCTIONS: The patient will discharge to home today under the care of [facility]. All future plans of care will be determined per their physician. HIRO/LUIS EDUARDO GREER Ugalde / [id number] CC: MD Nathen Paul II, MD
--- NOTE | ~2016-06-05 | HP ---
History And Physical [place] [id number] [facility] [place]. [address] NAME: RIK SORTO : 37 STATUS : ADM IN PAT#: [id number] AGE: 81 ADM/REG DATE : 06/05/16 MR#: [id number] REPORT SERV DATE: 06/05/16 DICTATED BY: DATE: REPORT STATUS : Draft TRANSCRIBED BY: MODL DATE: 06/05/16 DATE OF ADMISSION: 06/05/2016 PRIMARY ONCOLOGIST: Ady Azevedo M.D. CHIEF COMPLAINT: Profound increase in weakness and fatigue x3 days, chills, sweats, subjective fever x2 days ago, no solid food intake in approximately three days, increased dyspnea on exertion. HISTORY OF PRESENT ILLNESS: The patient's history was obtained through interview with the patient and her son coupled with review of [facility] office note dated 06/05/[address] Ady Azevedo in addition to review of [facility] records. Briefly, the patient is an 81-year-old female who is under the outpatient care of Dr. Ady Azevedo, [facility] for management of metastatic breast cancer. The patient had recently been on Faslodex/Ibrance before disease progression last month. The patient presented to [facility] office today for a work-in visit to be evaluated for profound weakness x3 days ago. It is noteworthy to mention that the patient was recently hospitalized between the dates of 05/08/2016 and 05/16/2016. Discharge diagnoses included acute on chronic hypoxia, aspiration pneumonia, painful and difficult swallowing, and intermittent bilateral upper and lower extremity tremors. The patient's son reported that the patient had been profoundly weak with increased shortness of breath on exertion for the past three days. The patient was reported to have recently slept 36 hours at home. Son also reports the patient has not consumed any oral intake except for liquids for the past three days. He stated he noticed the patient's appetite significantly declining after her long-term steroid taper had been discontinued. The patient complained of no appetite for three days, but denied nausea, vomiting, and abdominal pain. The patient also complained of extreme fatigue and stated she felt as though she could sleep "all the time." The patient also complained of intermittent sweats and chills with a subjective fever while at home on Saturday, however, she cannot remember what her temperature was after family member checked it. The patient also complained of diarrhea that started within the last 24 hours. The patient stated she had three episodes of watery/loose stool yesterday, but no BM today. The patient's son reported that the patient's shortness of breath upon exertion has exceeded baseline status and the patient is now requiring additional home O2 through the day to use as needed for recovery after ambulation. History And Physical [address] [address] NAME: RIK SORTO : 37 STATUS : ADM IN PAT#: [id number] AGE: 81 ADM/REG DATE : 06/05/16 MR#: [id number] REPORT SERV DATE: 06/05/16 DICTATED BY: DATE: REPORT STATUS : Draft TRANSCRIBED BY: LUIS EDUARDO DATE: 06/05/16 REVIEW OF SYSTEMS: CONSTITUTIONAL: Positive for subjective report of fever at home on Saturday, intermittent sweats and chills. The patient denies checking weight since last admission. EYES: Negative for acute changes in vision. HEENT: Negative for sore throat. CARDIOVASCULAR: Negative for chest pain, palpitations, syncopal episodes, or near syncope. History of chronic orthopnea x40 plus years. History of chronic class 2 dyspnea. RESPIRATORY: Positive for increased dyspnea on exertion. GASTROINTESTINAL: Negative for nausea, vomiting, and abdominal pain. Positive for diarrhea x24 hours. MUSCULOSKELETAL: Positive for chronic bilateral lower extremity pain and arthritis. INTEGUMENT: Negative for any nonhealing wounds or rashes. NEUROLOGIC: Positive for profound generalized weakness. Denies history of stroke, TIA, and seizure. HEMATOLOGIC: Positive for chronic anemia. PSYCHIATRIC: Positive for anxiety. : Negative for dysuria and hematuria. ENDOCRINE: Negative for diabetes mellitus. History of thyroid disease. PAST MEDICAL HISTORY: 1. Hypoxia, acute on chronic. 2. Aspiration pneumonia. 3. Dysphagia secondary to radiation therapy. 4. Intermittent bilateral upper and lower extremity tremors. 5. Left breast cancer in 1992. 6. Right breast cancer in 1999 with recurrence in 2010. Metastases to bone, liver, and lung. 7. Hypothyroidism. 8. Anxiety. 9. Arthritis. PAST SURGICAL HISTORY: 1. Left mastectomy in 1992. 2. Right mastectomy in 1999. 3. Colonoscopy in 2005. HOME MEDICATIONS: Awaiting pharmacy reconciliation of home medications. ALLERGIES: PER LAST ADMISSION, ALLERGIES WERE REPORTED TO BE PENICILLIN WITH REACTION RASH. SOCIAL HISTORY: The patient is and currently resides with her son. 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 The patient has not used tobacco since 1992 and denies the use of alcohol. The patient is now walker dependent for ambulation. FAMILY HISTORY: The patient's mother at age 90 with a history of breast cancer. The patient's father was killed in a mining accident in his mid 40s. The patient has five History And Physical [address] [address] NAME: RIK SORTO : 37 STATUS : ADM IN [facility]#: [id number] AGE: 81 ADM/REG DATE : 06/05/16 MR#: [id number] REPORT SERV DATE: 06/05/16 DICTATED BY: DATE: REPORT STATUS : Draft TRANSCRIBED BY: MODL DATE: 06/05/16 siblings, all of whom but one are . CODE STATUS: The patient expresses her wishes to be a limited DNR, no compressions, do not intubate. PHYSICAL EXAMINATION: VITAL SIGNS: Oxygen saturation 95% on 2 L, blood pressure 135/75, temperature 98.3, heart rate 102. NEURO: The patient is alert with no focal deficits. Cranial nerves II through XII are intact. GENERAL: The patient is cooperative, awake, alert, and oriented x3, and in no apparent distress. NECK: No lymphadenopathy. The patient is edentulous. Posterior oropharynx is visible without lesions or exudate. CHEST: No tenderness to palpation. LUNGS: Shallow inspiratory effort. Normal work of breathing. Expiratory wheezes throughout all lung li. No rhonchi. CARDIOVASCULAR: Regular rhythm. Mildly tachycardic. Heart rate 102. No murmurs, rubs, or gallops. ABDOMEN: Soft and nontender. No distention. Bowel sounds are present in all four quadrants. EXTREMITIES: No edema to bilateral lower extremities. Bilateral lower extremity dorsiflexion/plantar extension is equal and intact. The patient is able to elevate bilateral lower extremities off the bed and hold for approximately 3-4 seconds. PSYCH: Normal affect. Demonstrates good decision making ability. ASSESSMENT AND PLAN: 1. Profound debility. Per family report, the patient is extremely weak, now requiring an assistance and use of a walker for ambulation. Exact etiology is unclear, but may be related to absent p.o. intake other than liquids for approximately three days. Underlying infection will also be ruled out. 2. Acute on chronic dyspnea with hypoxia. The patient has a history of chronic class 2 exertional dyspnea. The patient has a history of home O2 use 2 L per nasal cannula as needed. The patient's baseline includes dyspnea on exertion. However, the patient is now requiring supplemental oxygen after any exertional activity for O2 recovery above 90%. Continue supplemental O2 to maintain saturation at 90% or greater. Initiate bronchodilator protocol with first treatment now. Obtain portable chest x-ray and procalcitonin level. The patient has a history of aspiration pneumonia within the past 30 days that was treated with cefepime and oral antibiotic at home. Antibiotics will be held for now and we will monitor patient closely. Solu-Medrol 60 mg IV every 12 hours has been ordered. 3. Acute anorexia. The patient has had no solid food intake for approximately three days. The patient's family believes this may be related to recent steroid taper that ended several days ago. We will encourage p.o. intake to include mechanical soft diet. Ensure nutritional supplement t.i.d. 4. Painful/difficult swallowing history. This was likely related to radiation therapy to treat cervical metastases in March 2016. This condition has improved since last History And Physical [address] [address] NAME: RIK SORTO : 37 STATUS : ADM IN [facility]#: [id number] AGE: 81 ADM/REG DATE : 06/05/16 MR#: [id number] REPORT SERV DATE: 06/05/16 DICTATED BY: DATE: REPORT STATUS : Draft TRANSCRIBED BY: MODL DATE: 06/05/16 admission and the patient is denying painful or difficult swallowing at this time. Continue mechanical soft diet. 5. Profound fatigue x3 days. Exact etiology is unclear, but most likely multifactorial to include severely decreased p.o. intake. Diagnostic test will include lab work, sputum culture, urinalysis and chest x-ray to assist in ruling out underlying infection. 6. Diarrhea, acute. This condition started approximately 24 hours ago. The patient reported three loose stools yesterday, however, no BM today. If diarrhea persists, studies to include C. diff, fecal leuks, and ova and parasite screen will be obtained. 7. Chronic anxiety. Continue the patient's home medications. 8. Metastatic breast cancer. This is progressed despite treatment. The patient has had no Ibrance or Faslodex since last month. The patient is managed per Dr. Ady Azevedo. It was noted in [facility] office notes that the patient may need to consider hospice transition at discharge secondary to poor performance status excluding her from any additional treatment. The care of this patient will be transferred to the service of Dr. Pavan Stanford. ETHANH/LUIS EDUARDO Vesta Gil NP-C / [id number] CC: MD Nathen Paul II, MD
[~2016-06-05 16:11] MED LIST changes: +ACET500CAP PO; +CARASPUDL PO; +CELEXA10 PO; +LEVAQUIN750 MG PO; +LEVOTHYROXIN75 MCG PO; +LIPITOR40 PO; +MIRALAX POWDER1 PKT PO; +MSCONT15 PO; +P10; +PROTONIX PO; +REM15 PO; +WELCHOL3.75 GM PO; +X5 PO
[2016-06-05 19:36] LABS: MEAN CORPUS HGB CONC 31.9 g/dL (32.0-36.0); MEAN CORPUSCULAR HEMOGLOB 31.8 pg (26.0-34.0); MEAN PLATELET VOLUME 10.8 fL (9.2-13.0); RBC DISTRIBUTION WIDTH 22.3 % (12.0-16.0); RED CELL COUNT 3.27 10/6/uL (4.0-5.6)
[2016-06-05 19:37] LABS: HEMATOCRIT 32.6 % (36.0-48.0); HEMOGLOBIN 10.4 g/dL (12.0-16.0); MANUAL DIFF YES %; MEAN CORPUSCULAR VOLUME 99.7 fL (80-100); PLATELET COUNT 141 10/3/uL (150-400)
[2016-06-05 20:03] LABS: A/G RATIO 0.5 (0.7-1.9); ALBUMIN 2.2 G/DL (3.5-5.0); CALCIUM, SERUM 7.9 MG/DL (8.5-10.4); CREATININE 0.54 MG/DL (0.55-1.02); GFR AFRICAN AMERICAN 103 ML/MIN (>=60); GFR NON AFRICAN AMERICAN 89 ML/MIN (>=60); GLOBULIN 4.2 G/DL (2.5-4.1); GLUCOSE, SERUM 100 MG/DL (60-99); PHOSPHORUS, SERUM 2.1 MG/DL (2.5-4.5); SGOT(AST) 58 U/L (5-40); SGPT(ALT) 26 U/L (5-65); TOTAL BILIRUBIN 1.3 MG/DL (0-1.2); TOTAL PROTEIN 6.4 G/DL (6.0-8.5)
[2016-06-05 20:05] LABS: BAND NEUTROPHILS 6 %; EOSINOPHILS 1 %; EOSINOPHILS ABSOLUTE (CALC) 0.09 10/3/uL (0.0-0.53); LYMPHOCYTES 7 %; LYMPHOCYTES ABSOLUTE (CALC) 0.63 10/3/uL (0.67-4.30); MONOCYTES 10 %; NEUTROPHILS ABSOLUTE (CALC) 7.38 10/3/uL (2.02-8.40); PLATELET ESTIMATE SLT DEC (ADEQUATE); SEGMENTED NEUTROPHIL (0) 76 %; TOTAL NUCLEATED CELLS 100
[2016-06-05 20:08] LABS: ALKALINE PHOSPHATASE 192 U/L (45-117); BUN (BLOOD UREA NITROGEN) 9 MG/DL (6-23); CHLORIDE, SERUM 98 MMOL/L (96-112); CO2 (CARBON DIOXIDE) 33 MMOL/L (24-34); POTASSIUM, SERUM 2.7 MMOL/L (3.5-5.3); SODIUM, SERUM 139 MMOL/L (135-148)
[2016-06-05 20:35] LABS: PROCALCITONIN 0.52 ng/mL (<0.5)
[2016-06-05] MEDS ORDERED: X5 PO (22:09)
[2016-06-05] MEDS ORDERED: LEVOTHYROXIN75 MCG PO (22:10)
[2016-06-05] MEDS ORDERED: REM15 PO (22:10)
[2016-06-05] MEDS ORDERED: MSCONT15 PO (22:10)
[2016-06-05] MEDS ORDERED: OXYCOD PO (22:11)
[2016-06-05] MEDS ORDERED: PROTONIX PO (22:11)
[2016-06-05 22:37] LABS: ASCORBIC ACID (UR NOT ORDER) NEG (NEG); BILIRUBIN, URINE NEGATIVE (NEG); KETONE, URINE TRACE MG/DL (NEG); LEUKOCYTE ESTERASE(NOT OR MOD (NEG); WBC (NOT ORDERED) (RFLEX) 27 (0-5)
[2016-06-06 04:48] LABS: BASOPHILS 0.2 %; BASOPHILS ABSOLUTE 0.01 10/3/uL (0.0-0.16); EOSINOPHILS 0 %; HEMATOCRIT 30.4 % (36.0-48.0); HEMOGLOBIN 9.7 g/dL (12.0-16.0); IMMATURE GRANULOCYTES 0.8 %; IMMATURE GRANULOCYTES ABSOLUTE 0.04 10/3/uL (0.0-0.11); LYMPHOCYTES ABSOLUTE 0.53 10/3/uL (0.67-4.30); MANUAL DIFF NO %; MEAN CORPUS HGB CONC 31.9 g/dL (32.0-36.0); MEAN CORPUSCULAR HEMOGLOB 31.9 pg (26.0-34.0); MEAN PLATELET VOLUME 11.4 fL (9.2-13.0); MONOCYTES ABSOLUTE 0.16 10/3/uL (0.21-1.20); NEUTROPHILS ABSOLUTE 4.55 10/3/uL (2.02-8.40); PLATELET COUNT 128 10/3/uL (150-400); RBC DISTRIBUTION WIDTH 22.3 % (12.0-16.0); RED CELL COUNT 3.04 10/6/uL (4.0-5.6); WHITE BLOOD CELLS 5.3 10/3/uL (4.5-10.5)
[2016-06-06 05:05] LABS: BUN (BLOOD UREA NITROGEN) 9 MG/DL (6-23); CALCIUM, SERUM 8.1 MG/DL (8.5-10.4); CHLORIDE, SERUM 108 MMOL/L (96-112); CO2 (CARBON DIOXIDE) 30 MMOL/L (24-34); CREATININE 0.57 MG/DL (0.55-1.02); GFR AFRICAN AMERICAN 101 ML/MIN (>=60); GFR NON AFRICAN AMERICAN 88 ML/MIN (>=60); SODIUM, SERUM 143 MMOL/L (135-148)
[2016-06-06 05:16] LABS: GLUCOSE, SERUM 210 MG/DL (60-99); POTASSIUM, SERUM 3.7 MMOL/L (3.5-5.3)
[2016-06-06 05:22] LABS: ELLIPTOCYTES 1+ (3-10/OIF) (0-2/OIF); MACROCYTES 1+ (5-10/OIF) (0-5/OIF); PLATELET ESTIMATE SLT DEC (ADEQUATE)
[2016-06-07 05:13] LABS: BASOPHILS 0 %; EOSINOPHILS 0 %; HEMATOCRIT 29.8 % (36.0-48.0); HEMOGLOBIN 9.6 g/dL (12.0-16.0); IMMATURE GRANULOCYTES 0.7 %; IMMATURE GRANULOCYTES ABSOLUTE 0.09 10/3/uL (0.0-0.11); LYMPHOCYTES 5.1 %; LYMPHOCYTES ABSOLUTE 0.64 10/3/uL (0.67-4.30); MEAN CORPUS HGB CONC 32.2 g/dL (32.0-36.0); MEAN CORPUSCULAR HEMOGLOB 32.3 pg (26.0-34.0); MEAN CORPUSCULAR VOLUME 100.3 fL (80-100); MEAN PLATELET VOLUME 11.5 fL (9.2-13.0); MONOCYTES 3.8 %; MONOCYTES ABSOLUTE 0.47 10/3/uL (0.21-1.20); NEUTROPHILS 90.4 %; NEUTROPHILS ABSOLUTE 11.23 10/3/uL (2.02-8.40); PLATELET COUNT 138 10/3/uL (150-400); RBC DISTRIBUTION WIDTH 22.9 % (12.0-16.0); RED CELL COUNT 2.97 10/6/uL (4.0-5.6)
[2016-06-07 05:16] LABS: MANUAL DIFF NO %; WHITE BLOOD CELLS 12.4 10/3/uL (4.5-10.5)
[2016-06-07 05:26] LABS: CHLORIDE, SERUM 113 MMOL/L (96-112); CO2 (CARBON DIOXIDE) 29 MMOL/L (24-34); CREATININE 0.51 MG/DL (0.55-1.02); GFR AFRICAN AMERICAN 105 ML/MIN (>=60); GFR NON AFRICAN AMERICAN 91 ML/MIN (>=60); POTASSIUM, SERUM 3.8 MMOL/L (3.5-5.3); SODIUM, SERUM 149 MMOL/L (135-148)
[2016-06-07 05:27] LABS: BUN (BLOOD UREA NITROGEN) 16 MG/DL (6-23); GLUCOSE, SERUM 147 MG/DL (60-99)
[2016-06-07 06:24] LABS: PLATELET ESTIMATE SLT DEC (ADEQUATE)
[2016-06-07 06:25] LABS: ANISOCYTOSIS 1+ (5-10/OIF) (0-5/OIF); ELLIPTOCYTES 1+ (3-10/OIF) (0-2/OIF); POIKILOCYTOSIS 1+ (5-10/OIF) (0-5/OIF); POLYCHROMASIA 1+ (2-5/OIF) (0-1/OIF); TEARDROP SHAPED RBCS OCC (0-2/OIF)
[2016-06-08 07:03] LABS: HEMOGLOBIN 9.8 g/dL (12.0-16.0); MANUAL DIFF YES %; MEAN CORPUS HGB CONC 31.6 g/dL (32.0-36.0); MEAN CORPUSCULAR HEMOGLOB 31.7 pg (26.0-34.0); MEAN CORPUSCULAR VOLUME 100.3 fL (80-100); MEAN PLATELET VOLUME 10.9 fL (9.2-13.0); PLATELET COUNT 111 10/3/uL (150-400); RBC DISTRIBUTION WIDTH 23.3 % (12.0-16.0); RED CELL COUNT 3.09 10/6/uL (4.0-5.6)
[2016-06-08 07:16] LABS: CALCIUM, SERUM 8.1 MG/DL (8.5-10.4); CHLORIDE, SERUM 114 MMOL/L (96-112); CO2 (CARBON DIOXIDE) 29 MMOL/L (24-34); CREATININE 0.57 MG/DL (0.55-1.02); GFR AFRICAN AMERICAN 101 ML/MIN (>=60); GFR NON AFRICAN AMERICAN 88 ML/MIN (>=60); GLUCOSE, SERUM 126 MG/DL (60-99); POTASSIUM, SERUM 3.8 MMOL/L (3.5-5.3); SODIUM, SERUM 149 MMOL/L (135-148)
[2016-06-08 07:17] LABS: BUN (BLOOD UREA NITROGEN) 22 MG/DL (6-23)
[2016-06-08 07:35] LABS: ANISOCYTOSIS 1+ (5-10/OIF) (0-5/OIF); BAND NEUTROPHILS 15 %; IMMATURE GRANS ABSOLUTE (CALC) 0.65 10/3/uL (0.0-0.11); LYMPHOCYTES 9 %; LYMPHOCYTES ABSOLUTE (CALC) 1.17 10/3/uL (0.67-4.30); MACROCYTES 1+ (5-10/OIF) (0-5/OIF); METAMYELOCYTES 5 %; MICROCYTES 1+ (5-10/OIF) (0-5/OIF); MONOCYTES 6 %; MONOCYTES ABSOLUTE (CALC) 0.78 10/3/uL (0.21-1.20); PLATELET ESTIMATE SLT DEC (ADEQUATE); SEGMENTED NEUTROPHIL (0) 65 %; TOTAL NUCLEATED CELLS 100
[2016-06-08 08:15] LABS: PROCALCITONIN 0.23 ng/mL (<0.5)
[2016-06-09 06:19] LABS: HEMATOCRIT 33.2 % (36.0-48.0); HEMOGLOBIN 10.4 g/dL (12.0-16.0); MEAN CORPUS HGB CONC 31.3 g/dL (32.0-36.0); MEAN CORPUSCULAR HEMOGLOB 31.7 pg (26.0-34.0); MEAN CORPUSCULAR VOLUME 101.2 fL (80-100); MEAN PLATELET VOLUME 10.8 fL (9.2-13.0); PLATELET COUNT 100 10/3/uL (150-400); RBC DISTRIBUTION WIDTH 23.2 % (12.0-16.0); RED CELL COUNT 3.28 10/6/uL (4.0-5.6); WHITE BLOOD CELLS 13.1 10/3/uL (4.5-10.5)
[2016-06-09 06:28] LABS: MANUAL DIFF YES %
[2016-06-09 06:33] LABS: CHLORIDE, SERUM 110 MMOL/L (96-112); CO2 (CARBON DIOXIDE) 33 MMOL/L (24-34); CREATININE 0.59 MG/DL (0.55-1.02); GFR AFRICAN AMERICAN 100 ML/MIN (>=60); GFR NON AFRICAN AMERICAN 87 ML/MIN (>=60); GLUCOSE, SERUM 110 MG/DL (60-99); POTASSIUM, SERUM 3.2 MMOL/L (3.5-5.3); SODIUM, SERUM 151 MMOL/L (135-148)
[2016-06-09 06:35] LABS: BUN (BLOOD UREA NITROGEN) 27 MG/DL (6-23)
[2016-06-09 07:03] LABS: BAND NEUTROPHILS 6 %; IMMATURE GRANS ABSOLUTE (CALC) 0.26 10/3/uL (0.0-0.11); LYMPHOCYTES 3 %; LYMPHOCYTES ABSOLUTE (CALC) 0.39 10/3/uL (0.67-4.30); MACROCYTES 1+ (5-10/OIF) (0-5/OIF); METAMYELOCYTES 2 %; MONOCYTES 8 %; MONOCYTES ABSOLUTE (CALC) 1.05 10/3/uL (0.21-1.20); PLATELET ESTIMATE DEC (ADEQUATE); RBC MORPHOLOGY ABN (NORMAL); SEGMENTED NEUTROPHIL (0) 81 %; TEARDROP SHAPED RBCS FEW (3-10/OIF); TOTAL NUCLEATED CELLS 100
[2016-06-10 06:19] LABS: HEMOGLOBIN 10.1 g/dL (12.0-16.0); MEAN CORPUS HGB CONC 31.6 g/dL (32.0-36.0); MEAN CORPUSCULAR HEMOGLOB 31.9 pg (26.0-34.0); MEAN CORPUSCULAR VOLUME 100.9 fL (80-100); MEAN PLATELET VOLUME 10.9 fL (9.2-13.0); PLATELET COUNT 97 10/3/uL (150-400); RBC DISTRIBUTION WIDTH 23.6 % (12.0-16.0); RED CELL COUNT 3.17 10/6/uL (4.0-5.6); WHITE BLOOD CELLS 11.5 10/3/uL (4.5-10.5)
[2016-06-10 06:23] LABS: MANUAL DIFF YES %
[2016-06-10 06:29] LABS: INTERNATIONAL NORMAL RATI 1.3 UNITS (-); PARTIAL THROMBO TIME 29.7 SEC (22.5-37.2); PROTIME (NOT ORD) 16.3 SEC (12.0-14.5)
[2016-06-10 06:37] LABS: A/G RATIO 0.5 (0.7-1.9); ALBUMIN 1.8 G/DL (3.5-5.0); ALKALINE PHOSPHATASE 195 U/L (45-117); CALCIUM, SERUM 8.1 MG/DL (8.5-10.4); CHLORIDE, SERUM 110 MMOL/L (96-112); CO2 (CARBON DIOXIDE) 32 MMOL/L (24-34); CREATININE 0.56 MG/DL (0.55-1.02); GFR AFRICAN AMERICAN 102 ML/MIN (>=60); GFR NON AFRICAN AMERICAN 88 ML/MIN (>=60); GLOBULIN 3.5 G/DL (2.5-4.1); GLUCOSE, SERUM 102 MG/DL (60-99); POTASSIUM, SERUM 3.8 MMOL/L (3.5-5.3); SGOT(AST) 31 U/L (5-40); SGPT(ALT) 22 U/L (5-65); SODIUM, SERUM 149 MMOL/L (135-148); TOTAL PROTEIN 5.3 G/DL (6.0-8.5)
[2016-06-10 06:39] LABS: BUN (BLOOD UREA NITROGEN) 15 MG/DL (6-23); TOTAL BILIRUBIN 0.5 MG/DL (0-1.2)
[2016-06-10 06:47] LABS: ACANTHOCYTES OCC (0-2/OIF); BAND NEUTROPHILS 5 %; IMMATURE GRANS ABSOLUTE (CALC) 0.12 10/3/uL (0.0-0.11); LYMPHOCYTES 3 %; LYMPHOCYTES ABSOLUTE (CALC) 0.35 10/3/uL (0.67-4.30); MACROCYTES 1+ (5-10/OIF) (0-5/OIF); METAMYELOCYTES 1 %; MONOCYTES 6 %; MONOCYTES ABSOLUTE (CALC) 0.69 10/3/uL (0.21-1.20); NEUTROPHILS ABSOLUTE (CALC) 10.35 10/3/uL (2.02-8.40); NUCLEATED RED BLOOD CELLS 1 /100WBC (0); PLATELET ESTIMATE DEC (ADEQUATE); RBC MORPHOLOGY ABN (NORMAL); SEGMENTED NEUTROPHIL (0) 85 %; TEARDROP SHAPED RBCS OCC (0-2/OIF); TOTAL NUCLEATED CELLS 100
[2016-06-11 06:45] LABS: MEAN CORPUS HGB CONC 30.6 g/dL (32.0-36.0); MEAN CORPUSCULAR HEMOGLOB 31.7 pg (26.0-34.0); MEAN CORPUSCULAR VOLUME 103.8 fL (80-100); NUCLEATED RED BLOOD CELLS 0.6 /100WBC (0-0); PLATELET COUNT 93 10/3/uL (150-400); WHITE BLOOD CELLS 14.3 10/3/uL (4.5-10.5)
[2016-06-11 06:46] LABS: BUN (BLOOD UREA NITROGEN) 15 MG/DL (6-23); CALCIUM, SERUM 8.2 MG/DL (8.5-10.4); CHLORIDE, SERUM 107 MMOL/L (96-112); CO2 (CARBON DIOXIDE) 25 MMOL/L (24-34); GFR AFRICAN AMERICAN 106 ML/MIN (>=60); GFR NON AFRICAN AMERICAN 91 ML/MIN (>=60); GLUCOSE, SERUM 77 MG/DL (60-99); HEMATOCRIT 40.9 % (36.0-48.0); HEMOGLOBIN 12.5 g/dL (12.0-16.0); POTASSIUM, SERUM 4.6 MMOL/L (3.5-5.3); RED CELL COUNT 3.94 10/6/uL (4.0-5.6); SODIUM, SERUM 144 MMOL/L (135-148)
[2016-06-11 06:48] LABS: MANUAL DIFF YES %
[2016-06-11 07:09] LABS: BAND NEUTROPHILS 4 %; BURR CELLS 1+ (3-10/OIF) (0-2/OIF); EOSINOPHILS 1 %; EOSINOPHILS ABSOLUTE (CALC) 0.14 10/3/uL (0.0-0.53); IMMATURE GRANS ABSOLUTE (CALC) 0.57 10/3/uL (0.0-0.11); LYMPHOCYTES 9 %; LYMPHOCYTES ABSOLUTE (CALC) 1.29 10/3/uL (0.67-4.30); MACROCYTES 1+ (5-10/OIF) (0-5/OIF); METAMYELOCYTES 2 %; MONOCYTES 5 %; MONOCYTES ABSOLUTE (CALC) 0.72 10/3/uL (0.21-1.20); MYELOCYTES 2 %; NEUTROPHILS ABSOLUTE (CALC) 11.58 10/3/uL (2.02-8.40); POIKILOCYTOSIS 1+ (5-10/OIF) (0-5/OIF); SEGMENTED NEUTROPHIL (0) 77 %; TOTAL NUCLEATED CELLS 100
[2016-06-11 07:10] LABS: SCHISTOCYTES OCC (0-2/OIF)
== END 2016-06-11 13:39 | disposition hospice, home (50) | DRG 177 ==
LOC: 4EA 16:11
PROVIDERS: Internal Medicine; Nurse Practitioner Family
DX: J69.0 Pneumonitis due to inhalation of food and vomit (principal); I50.31 Acute diastolic (congestive) heart failure; E87.0 Hyperosmolality and hypernatremia; J96.11 Chronic respiratory failure with hypoxia; N39.0 Urinary tract infection, site not specified; C50.919 Malignant neoplasm of unspecified site of unspecified female breast; R63.0 Anorexia; F41.9 Anxiety disorder, unspecified; Y95 Nosocomial condition; E87.6 Hypokalemia; Z66 Do not resuscitate
CPT/HCPCS: 71010; 80048; 80053; 80202; 81001; 83735; 83880; 84100; 84132; 84145; 85025; 85610; 85730; 87040; 87077; 87086; 87186; 94640; 97162-GP; A9270-GY; G8978-CM-GP; G8979-CL-GP; J0692; J1940; J2930; J3370